=== PATIENT | female | born 1990 | race Two or more races ===

== ENCOUNTER 2018-12-02 23:24 | Emergency (ER) | payer SELFPAY ==
[~2018-12-02] VITALS: Ht 165.1 cm; Wt 97.5 kg
[2018-12-02] MEDS ORDERED: ONDANSETRON HCL/PF 4 MG/2 ML VIAL ONE (23:39)
--- NOTE | 2018-12-02 23:45 | NUR ---
biba for ETOH, N/V. placed on a monitor . vss. will cont to monitor
[2018-12-03] MEDS ORDERED: ONDANSETRON HCL/PF 4 MG/2 ML VIAL IM ONE
--- NOTE | 2018-12-03 01:54 | NUR ---
Patient is resting comfortably in bed with eyes closed. Easily aroused. VSS
--- NOTE | 2018-12-03 03:09 | NUR ---
Patient is resting comfortably in bed with eyes closed. Easily aroused. VSS
--- NOTE | 2018-12-03 04:34 | NUR ---
PT , AWAKE AND ALERT, AMBULATORY W/ STEADY GATE. REQUESTING TO BE D/C. PER MD CLEAR TO BE D/C HOME.
--- NOTE | 2018-12-03 04:42 | NUR ---
Patient discharged to home in stable condition. Written and verbal after care instructions given. Patient verbalizes understanding of instruction.
[2018-12-03 05:04] VITALS: BP 118/70
== END 2018-12-03 05:05 | disposition home or self-care (01) ==
LOC: ER 23:24
DX: F19.10 Other psychoactive substance abuse, uncomplicated (principal)
CPT/HCPCS: 96372; 99283; J2405

== ENCOUNTER 2023-05-16 06:26 | Emergency (ER) | payer SELFPAY ==
[~2023-05-16] VITALS: Ht 167.6 cm; Wt 86.2 kg
[2023-05-16 06:42] VITALS: BP 119/80; TEMP 99.9; O2SAT 98
== END 2023-05-16 09:15 | disposition left against medical advice (07) ==
LOC: ER 06:30
DX: J02.9 Acute pharyngitis, unspecified (principal)